=== PATIENT | male | born 1960 | race American Indian/Alaskan Native ===

== ENCOUNTER 2017-09-05 01:20 | Emergency (ER) | payer MEDICARE ==
[2017-09-05] MEDS ORDERED: NORCO 5/325 PO ONE (03:45)
[2017-09-05] MEDS ORDERED: ZOFRAN ODT PO ONE (03:45)
[2017-09-05] MEDS ORDERED: MOTRIN PO ONE (03:45)
--- NOTE | 2017-09-05 03:45 | Emergency Department Report ---
ED Lower Extremity HPI - General Chief Complaint: Extremity Injury, Lower Stated Complaint: ANKLE PAIN Time Seen by Provider: 09/05/17 03:27 Source: patient Mode of arrival: Ambulatory Limitations: No Limitations - History of Present Illness Initial Comments: 57-year-old male past medical history none presents with complaint of right ankle pain. Patient states that while walking on sidewalk he tripped on a curb and inverted his right ankle. Patient denies any other injuries. He shouldn't is accompanied by family member brought him from seen to the ED for evaluation. This occurred approximately 5-6 hours ago. Patient has visible swelling at distal right lateral malleolus and medial malleolus. Patient is awake alert and oriented 3 states that he has difficulty walking secondary to pain in his ankle. Patient denies any loss of consciousness denies any lacerations. States that he just simply tripped over a curb. Complaint: ankle injury Injury: Ankle: Right Type of Injury: inversion Place: street/outdoors Severity: severe Severity scale (0 -10): 8 Improves With: cold therapy, immobilization Worsens With: weight bearing, movement, palpation Context: walking Associated Symptoms: snap/pop sensation, swelling, unable to bear weight - Related Data Previous Rx's Medication Instructions Recorded Last Taken Type HYDROcodone/APAP 5-325 [[place] 1 each PO Q6HR PRN #15 tablet 09/05/17 Unknown Rx 5/325] Naproxen 500 mg PO BID PRN #30 tablet 09/05/17 Unknown Rx Allergies Allergy/AdvReac Type Severity Reaction Status Date / Time No Known Allergies Allergy Unverified 09/05/17 01:41 ED Review of Systems ROS: Stated complaint: ANKLE PAIN Other details as noted in HPI Constitutional: denies: chills, fever Eyes: denies: eye pain, eye discharge, vision change ENT: denies: ear pain, throat pain Respiratory: denies: cough, shortness of breath, wheezing Cardiovascular: denies: chest pain, palpitations Endocrine: no symptoms reported Gastrointestinal: denies: abdominal pain, nausea, diarrhea Genitourinary: denies: urgency, dysuria Musculoskeletal: denies: back pain, joint swelling, arthralgia Skin: denies: rash, lesions Neurological: denies: headache, weakness, paresthesias Psychiatric: denies: anxiety, depression Hematological/Lymphatic: denies: easy bleeding, easy bruising ED Past Medical Hx - Past Medical History Previous Medical History?: No - Surgical History Past Surgical History?: No - Social History Smoking Status: Never Smoker Substance Use Type: Alcohol - Medications Home Medications: Home Medications Medication Instructions Recorded Confirmed Last Taken Type HYDROcodone/APAP 5-325 [[place] 1 each PO Q6HR PRN #15 tablet 09/05/17 Unknown Rx 5/325] Naproxen 500 mg PO BID PRN #30 tablet 09/05/17 Unknown Rx ED Physical Exam - General Limitations: No Limitations General appearance: alert, in no apparent distress - Head Head exam: Present: atraumatic, normocephalic - Eye Eye exam: Present: normal appearance, PERRL, EOMI - ENT ENT exam: Present: mucous membranes moist - Neck Neck exam: Present: normal inspection - Respiratory Respiratory exam: Present: normal lung sounds bilaterally. Absent: respiratory distress - Cardiovascular Cardiovascular Exam: Present: regular rate, normal rhythm. Absent: systolic murmur, diastolic murmur, rubs, gallop - GI/Abdominal GI/Abdominal exam: Present: soft, normal bowel sounds - Rectal Rectal exam: Present: deferred - Extremities Exam Extremities exam: Present: normal inspection - Expanded Lower Extremity Exam Right Knee exam: Present: normal inspection, full ROM Lower Leg exam: Present: normal inspection, full ROM Ankle exam: Present: tenderness, swelling (tenderness and swelling right lateral malleolus) Foot/Toe exam: Present: normal inspection, full ROM Neuro vascular tendon exam: Present: no vascular compromise (distal dorsalis pedis and posterior tibial pulses intact) Gait: Positive: antalgic 1 - Swelling and some ecchymosis here - Back Exam Back exam: Present: normal inspection - Neurological Exam Neurological exam: Present: alert, oriented X3, CN II-XII intact, abnormal gait (antalgic gait secondary to pain) - Psychiatric Psychiatric exam: Present: normal affect, normal mood - Skin Skin exam: Present: warm, dry, intact, normal color. Absent: rash ED Course Vital Signs 09/05/17 09/05/17 01:37 03:52 Temperature 98.7 F Pulse Rate 101 H Respiratory 17 18 Rate Blood Pressure 163/91 ED Lower Extremity MDM - Medical Decision Making A/P: Right distal fibular fracture 1-in context of inversion injury with suspicious fragments near distal fibula will treat patient as distal fibular fracture. 2-patient already has crutches, patient placed in an orthopedic boot with full posterior ankle and foot support 3-short course of naproxen and [place] when necessary 4-all up with orthopedics. I emphasized the importance of follow-up to the patient and educated him. I advised him that it takes approximately 4-6 weeks for fractures of distal fibula to heal. Nonweightbearing for now. Patient states he is familiar with using crutches and already has apparent bedside that he brought from home. 5-patient being driven home by family member Critical care attestation.: If time is entered above; I have spent that time in minutes in the direct care of this critically ill patient, excluding procedure time. ED Disposition Clinical Impression: Closed fibular fracture Qualifiers: Encounter type: initial encounter Fibula location: distal Fracture morphology: unspecified fracture morphology Laterality: right Qualified Code(s): S82.831A - Other fracture of upper and lower end of right fibula, initial encounter for closed fracture Ankle pain, right Qualifiers: Chronicity: acute Qualified Code(s): M25.571 - Pain in right ankle and joints of right foot Disposition: DC-01 TO HOME OR SELFCARE Is pt being admited?: No Does the pt Need Aspirin: No Condition: Stable Instructions: Ankle Fracture (ED), Ankle Stirrup Splint (ED), Crutch Instructions (ED) Prescriptions: HYDROcodone/APAP 5-325 [[place] 5/325] 1 each PO Q6HR PRN #15 tablet PRN Reason: Pain Naproxen 500 mg PO BID PRN #30 tablet PRN Reason: Pain Referrals: CAROLE HYATT MD [Staff Physician] - 3-5 Days [facility] [Provider Group] - 3-5 Days Forms: Accompanied Note, Work/School Release Form(ED) Time of Disposition: 05:35
[2017-09-05 06:03] VITALS: BP 158/91
--- NOTE | 2017-09-06 10:57 | XRay Report ---
FINAL REPORT EXAM: XR RT ANKLE CLINICAL INDICATIONS: RT ANKLE PAIN FINDINGS: 3 views obtained. No prior radiographs. Small bony fragment at the tip of the distal fibula consistent with small avulsion injury of undetermined age. Correlation with clinical history and clinical exam recommended. There is mild soft tissue swelling overlying the lateral malleolus. The ankle mortise is intact. The talar dome is within normal limits. There is a large inferior calcaneal spur. Retrocalcaneal enthesophyte. Cortical irregularity along the posterior portion of the talus, with suggestion of adjacent periosteal reaction which may represent sequela from prior fracture. IMPRESSION: SMALL BONY FRAGMENT AT THE TIP OF THE DISTAL FIBULA CONSISTENT WITH SMALL AVULSION INJURY OF UNDETERMINED AGE. CORRELATION WITH CLINICAL HISTORY AND CLINICAL EXAM RECOMMENDED. THERE IS MILD SOFT TISSUE SWELLING OVERLYING THE LATERAL MALLEOLUS. CORTICAL IRREGULARITY ALONG THE POSTERIOR PORTION OF THE TALUS, WITH SUGGESTION OF ADJACENT PERIOSTEAL REACTION WHICH MAY REPRESENT SEQUELA FROM PRIOR FRACTURE. THE ANKLE MORTISE IS INTACT. LARGE INFERIOR CALCANEAL SPUR.
== END 2017-09-05 06:03 | disposition home or self-care (01) ==
LOC: ED 01:20
DX: S82.831A Other fracture of upper and lower end of right fibula, initial encounter for closed fracture (principal); M25.571 Pain in right ankle and joints of right foot; W18.49XA Other slipping, tripping and stumbling without falling, initial encounter; Y93.01 Activity, walking, marching and hiking; Y99.9 Unspecified external cause status; Y92.89 Other specified places as the place of occurrence of the external cause
CPT/HCPCS: 99283; Q0162

== ENCOUNTER 2019-12-27 19:58 | Inpatient (IN) | payer MEDICARE ==
--- NOTE | 2019-12-27 21:03 | Emergency Department Report ---
Blank Doc - Documentation Documentation: 59-year-old male that presents with abdominal pain and nausea. This initial assessment/diagnostic orders/clinical plan/treatment(s) is/are subject to change based on patient's health status, clinical progression and re- assessment by fellow clinical providers in the ED. Further treatment and workup at subsequent clinical providers discretion. Patient/guardians urged not to elope from the ED as their condition may be serious if not clinically assessed and managed. Initial orders include: 1- Patient sent to [facility] for further evaluation and treatment 2- labs 3- UA
[2019-12-27 21:36] LABS: Basophils % (Auto) 0.4 % (0.0-1.8); Eosinophils # (Auto) 0.1 K/mm3 (0.0-0.4); Eosinophils % (Auto) 0.6 % (0.0-4.3); Hematocrit 39.5 % (35.5-45.6); Hemoglobin 13.2 gm/dl (11.8-15.2); Lymphocytes # (Auto) 1.1 K/mm3 (1.2-5.4); Lymphocytes % (Auto) 11.8 % (13.4-35.0); Mean Corpuscular HGB Conc 33 % (32-34); Mean Corpuscular Volume 90 fl (84-94); Monocytes # (Auto) 0.7 K/mm3 (0.0-0.8); Platelet Count 270 K/mm3 (140-440); Red Blood Count 4.41 M/mm3 (3.65-5.03); Red Cell Distribution Width 14.3 % (13.2-15.2)
[2019-12-27 21:59] LABS: Alanine Aminotransferase 31 units/L (7-56); BUN/Creatinine Ratio 11; Blood Urea Nitrogen 11 mg/dL (9-20); Calcium 9.1 mg/dL (8.4-10.2); Hemolysis Index 12
[2019-12-27 22:12] LABS: Bilirubin,Urine NEG (Negative); Blood,Urine NEG (Negative); Color,Urine Yellow (Yellow); Protein,Urine <15 mg/dL mg/dL (Negative); Urobilinogen,Urine < 2.0 mg/dL (<2.0)
[2019-12-27] MEDS ORDERED: FAMOTIDINE 20 MG/2 ML INJ IV ONE (22:21)
[2019-12-27] MEDS ORDERED: SODIUM CHLORIDE 0.9% 1000 ML 1,000 ML IV ONE (22:21)
[2019-12-27] MEDS ORDERED: ACETAMINOPHEN 325 MG TAB PO STA (22:21)
[2019-12-27] MEDS ORDERED: SUCRALFATE 1 GM/10 ML ORAL LIQD PO ONE (22:22)
--- NOTE | 2019-12-27 22:23 | Emergency Department Report ---
ED Abdominal Pain HPI - General Chief Complaint: Abdominal Pain Stated Complaint: CHEST AND STOMACH PAIN Time Seen by Provider: 12/27/19 21:02 Source: patient, RN notes reviewed Mode of arrival: Ambulatory Limitations: No Limitations - History of Present Illness Initial Comments: Primary care doctor: Dr. John English Past medical history: Hypertension, high cholesterol, GERD, reports colonoscopy within the past 10 years, believes it was fairly unremarkable This is a pleasant 59-year-old gentleman. He is not known to myself previously. He presents to the ER today with a complaint of 5 days of abdominal pain. The abdominal pain is supraumbilical, periumbilical, and in the bilateral mid flanks, left upper quadrant most prominent. The pain is described as sharp, mixed, decreases with sleeping, increases with walking. No fever, no nausea, no vomiting, no diarrhea, no testicular pain, no urinary symptoms, no hematemesis, no bright red blood per rectum, positive chronic dry cough, no chest pain, no shortness of breath, positive chronic myalgias. MD Complaint: abdominal pain -: Gradual, days(s) Location: periumbilical, LUQ Radiation: none Severity: moderate Quality: aching Consistency: intermittent Improves With: other Worsens With: other - Related Data Home Medications Medication Instructions Recorded Confirmed Last Taken AtorvaSTATin [Lipitor] 40 mg PO QHS 12/28/19 12/28/19 Unknown Losartan/Hydrochlorothiazide 1 each PO 12/28/19 Unknown [Losartan-Hctz 100-25 mg Tab] Allergies Allergy/AdvReac Type Severity Reaction Status Date / Time No Known Allergies Allergy Unverified 09/05/17 01:41 ED Review of Systems ROS: Stated complaint: CHEST AND STOMACH PAIN Other details as noted in HPI Constitutional: denies: fever Eyes: denies: eye discharge ENT: denies: congestion Respiratory: cough (Chronic cough). denies: wheezing Cardiovascular: denies: chest pain, syncope Gastrointestinal: abdominal pain. denies: hematemesis, melena, hematochezia Genitourinary: denies: urgency, dysuria, frequency, hematuria, testicular pain, testicular mass Musculoskeletal: arthralgia, myalgia Skin: denies: lesions Neurological: denies: weakness Hematological/Lymphatic: denies: easy bleeding ED Past Medical Hx - Past Medical History Previous Medical History?: Yes Hx Hypertension: Yes Additional medical history: ELEVATED CHOLESTEROL - Surgical History Past Surgical History?: Yes Additional Surgical History: RT ANKLE, BILATERAL KNEE PAIN - Social History Smoking Status: Never Smoker Substance Use Type: None - Medications Home Medications: Home Medications Medication Instructions Recorded Confirmed Last Taken Type AtorvaSTATin [Lipitor] 40 mg PO QHS 12/28/19 12/28/19 Unknown History Losartan/Hydrochlorothiazide 1 each PO 12/28/19 Unknown History [Losartan-Hctz 100-25 mg Tab] ED Physical Exam - General Limitations: No Limitations General appearance: alert, in no apparent distress - Head Head exam: Present: atraumatic, normocephalic - Eye Eye exam: Present: normal appearance, EOMI. Absent: nystagmus - ENT ENT exam: Present: normal exam, normal orophraynx, mucous membranes moist, normal external ear exam - Neck Neck exam: Present: normal inspection, full ROM. Absent: tenderness, meningismus - Respiratory Respiratory exam: Present: normal lung sounds bilaterally. Absent: respiratory distress - Cardiovascular Cardiovascular Exam: Present: regular rate, normal rhythm, normal heart sounds. Absent: bradycardia, tachycardia, irregular rhythm, systolic murmur, diastolic murmur, rubs, gallop - GI/Abdominal GI/Abdominal exam: Present: soft, tenderness, normal bowel sounds, other (There is periumbilical tenderness. There is left upper quadrant tenderness.). Absent: distended, guarding, rebound, rigid, pulsatile mass - Rectal Rectal exam: Present: deferred - Extremities Exam Extremities exam: Present: normal inspection, full ROM, other (2+ pulses noted in the bilateral upper and lower extremities. There is no palpable cord. negative Homans sign. Muscular compartments are soft. The pelvis is stable.). Absent: pedal edema, calf tenderness - Back Exam Back exam: Present: normal inspection, full ROM. Absent: tenderness, CVA tenderness (R), CVA tenderness (L), paraspinal tenderness, vertebral tenderness - Neurological Exam Neurological exam: Present: alert, other (There is no facial droop. The tongue is midline. Extraocular movements are intact bilaterally. There is 5 out of 5 strength in bilateral upper and lower extremities. Sensation is intact to light touch bilateral upper and lower extremities. ). Absent: motor sensory deficit - Psychiatric Psychiatric exam: Present: normal affect, normal mood - Skin Skin exam: Present: warm, dry, intact, normal color. Absent: rash ED Course Vital Signs 12/27/19 12/27/19 12/27/19 20:33 21:35 22:31 Temperature 99.1 F 98.7 F Pulse Rate 83 75 78 Respiratory 20 12 7 L Rate Blood Pressure 124/73 109/70 Blood Pressure 113/69 [Right] O2 Sat by Pulse 98 100 100 Oximetry 12/27/19 12/28/19 12/28/19 23:31 00:23 01:03 Temperature Pulse Rate 87 89 93 H Respiratory 29 H 10 L 23 Rate Blood Pressure 136/55 137/67 Blood Pressure 137/67 [Right] O2 Sat by Pulse 99 96 96 Oximetry 12/28/19 01:45 Temperature Pulse Rate 96 H Respiratory 20 Rate Blood Pressure Blood Pressure 131/81 [Right] O2 Sat by Pulse 96 Oximetry - Reevaluation(s) Reevaluation #1: 12/27/19 23:35 Differential diagnosis, including but not limited to: GERD, gastritis, hiatal hernia, pancreatitis, ventral hernia, colitis, diverticulitis, obstruction, volvulus, malignancy Assessment and plan: 59-year-old gentleman with 5 days of periumbilical, and left upper quadrant abdominal pain. He is not tachycardic, tachypneic or hypoxic, he denies recent travel, surgery, immobilization, and denies DVT, pulmonary embolism risk factors. He is low risk by Wells criteria. He does not endorse chest pain to myself. His EKG is fairly unremarkable, troponin is negative, symptoms present for 5 days, as per the [employer] clinical policy, myocardial infarction may be excluded with 1 set of cardiac enzymes if symptoms present for greater than 8 hours. Based off of the history and physical, patient also very unlikely to experience major adverse cardiac events as he is low risk by heart score. We will treat his pain, CT scan abdomen pelvis ordered and pending, we will reassess after initial data points. Reevaluation #2: 12/28/19 01:40 CT scan suggests intra-abdominal abscess, contained perforation. Patient states his pain is improved. Laboratory studies reviewed and appreciated. Antibiotics ordered. Discussed CT scan findings with patient. He is amenable to hospitalization and admission. Hospital physician is paged to arrange admission. General surgery is paged to arrange evaluation and consultation. Reevaluation #3: 12/28/19 01:46 General surgeon, Dr. Fernandes, recommends GI consultation, CT abdomen pelvis with only oral contrast. Dr Justin Abel to admit Reevaluation #4: 12/28/19 01:57 Discussed with gastroenterology, Dr. Shafer, his group will follow in consultation. Reevaluation #5: 12/28/19 02:18 Please note that mechatronics technologist was instructed to administer water-soluble oral contrast. - Consultations Consultation #1: 12/28/19 01:41 d/w general surgery Dr Marleny Evans,iraida who agrees to follow in ED Medical Decision Making - Lab Data Result diagrams: 12/27/19 21:06 12/27/19 21:06 Vital Signs 12/27/19 12/27/19 20:33 21:35 Temperature 99.1 F 98.7 F Pulse Rate 83 75 Respiratory 20 12 Rate Blood Pressure 124/73 Blood Pressure 113/69 [Right] O2 Sat by Pulse 98 100 Oximetry Lab Results 12/27/19 12/27/19 12/27/19 Range/Units 21:06 21:06 21:06 WBC 9.1 (4.5-11.0) K/mm3 RBC 4.41 (3.65-5.03) M/mm3 Hgb 13.2 (11.8-15.2) gm/dl Hct 39.5 (35.5-45.6) % MCV 90 (84-94) fl MCH 30 (28-32) pg MCHC 33 (32-34) % RDW 14.3 (13.2-15.2) % Plt Count 270 (140-440) K/mm3 Lymph % (Auto) 11.8 L (13.4-35.0) % Alexander % (Auto) 8.0 H (0.0-7.3) % Eos % (Auto) 0.6 (0.0-4.3) % Baso % (Auto) 0.4 (0.0-1.8) % Lymph # 1.1 L (1.2-5.4) K/mm3 Alexander # 0.7 (0.0-0.8) K/mm3 Eos # 0.1 (0.0-0.4) K/mm3 Baso # 0.0 (0.0-0.1) K/mm3 Seg Neutrophils % 79.2 H (40.0-70.0) % Seg Neutrophils # 7.2 (1.8-7.7) K/mm3 Sodium 142 (137-145) mmol/L Potassium 3.4 L (3.6-5.0) mmol/L Chloride 101.0 (98-107) mmol/L Carbon Dioxide 24 (22-30) mmol/L Anion Gap 20 mmol/L BUN 11 (9-20) mg/dL Creatinine 1.0 (0.8-1.5) mg/dL Estimated GFR > 60 ml/min BUN/Creatinine Ratio 11 % Glucose 116 H (75-100) mg/dL Calcium 9.1 (8.4-10.2) mg/dL Magnesium 2.00 (1.7-2.3) mg/dL Total Bilirubin 0.50 (0.1-1.2) mg/dL AST 30 (5-40) units/L ALT 31 (7-56) units/L Alkaline Phosphatase 84 (35-129) units/L Total Creatine Kinase 152 (55-170) units/L Troponin T < 0.010 (0.00-0.029) ng/mL Total Protein 7.0 (6.3-8.2) g/dL Albumin 4.0 (3.9-5) g/dL Albumin/Globulin Ratio 1.3 % Lipase 76 H (13-60) units/L Urine Color (Yellow) Urine Turbidity (Clear) Urine pH (5.0-7.0) Ur Specific [place] (1.003-1.030) Urine Protein (Negative) mg/dL Urine Glucose (UA) (Negative) mg/dL Urine Ketones (Negative) mg/dL Urine Blood (Negative) Urine Nitrite (Negative) Urine Bilirubin (Negative) Urine Urobilinogen (<2.0) mg/dL Ur Leukocyte Esterase (Negative) Urine WBC (Auto) (0.0-6.0) /HPF Urine RBC (Auto) (0.0-6.0) /HPF 12/27/19 Range/Units 21:45 WBC (4.5-11.0) K/mm3 RBC (3.65-5.03) M/mm3 Hgb (11.8-15.2) gm/dl Hct (35.5-45.6) % MCV (84-94) fl MCH (28-32) pg MCHC (32-34) % RDW (13.2-15.2) % Plt Count (140-440) K/mm3 Lymph % (Auto) (13.4-35.0) % Alexander % (Auto) (0.0-7.3) % Eos % (Auto) (0.0-4.3) % Baso % (Auto) (0.0-1.8) % Lymph # (1.2-5.4) K/mm3 Alexander # (0.0-0.8) K/mm3 Eos # (0.0-0.4) K/mm3 Baso # (0.0-0.1) K/mm3 Seg Neutrophils % (40.0-70.0) % Seg Neutrophils # (1.8-7.7) K/mm3 Sodium (137-145) mmol/L Potassium (3.6-5.0) mmol/L Chloride (98-107) mmol/L Carbon Dioxide (22-30) mmol/L Anion Gap mmol/L BUN (9-20) mg/dL Creatinine (0.8-1.5) mg/dL Estimated GFR ml/min BUN/Creatinine Ratio % Glucose (75-100) mg/dL Calcium (8.4-10.2) mg/dL Magnesium (1.7-2.3) mg/dL Total Bilirubin (0.1-1.2) mg/dL AST (5-40) units/L ALT (7-56) units/L Alkaline Phosphatase (35-129) units/L Total Creatine Kinase (55-170) units/L Troponin T (0.00-0.029) ng/mL Total Protein (6.3-8.2) g/dL Albumin (3.9-5) g/dL Albumin/Globulin Ratio % Lipase (13-60) units/L Urine Color Yellow (Yellow) Urine Turbidity Clear (Clear) Urine pH 5.0 (5.0-7.0) Ur Specific [place] 1.013 (1.003-1.030) Urine Protein <15 mg/dl (Negative) mg/dL Urine Glucose (UA) Neg (Negative) mg/dL Urine Ketones Neg (Negative) mg/dL Urine Blood Neg (Negative) Urine Nitrite Neg (Negative) Urine Bilirubin Neg (Negative) Urine Urobilinogen < 2.0 (<2.0) mg/dL Ur Leukocyte Esterase Neg (Negative) Urine WBC (Auto) 1.0 (0.0-6.0) /HPF Urine RBC (Auto) 1.0 (0.0-6.0) /HPF - EKG Data -: EKG Interpreted by Nm EKG shows normal: sinus rhythm Rate: normal - EKG Data When compared to previous EKG there are: previous EKG unavailable 12/27/19 23:37 EKG shows a sinus rhythm, 81 bpm, normal axis, borderline left ventricular hypertrophy, motion artifact, atrial enlargement, no prior for comparison, this is not consistent with STEMI - Radiology Data Radiology results: pending, report reviewed, image reviewed Print Report Referring Physician: TASHA AMADOR Patient Name: JULI VELEZ Date of : 1960 Sex: Male Report Date: 2019-12-28 Report Status: Finalized Findings [facility] [address] [place] [address] Cat Scan Report Signed Patient: JULI VELEZ MR#: [id number] : 1960 Acct:[id number] Age/Sex: 59 / M ADM Date: 12/27/19 Loc: ED Attending Dr: Ordering Physician: TASHA AMADOR MD Date of Service: 12/27/19 Procedure(s): CT abdomen pelvis w con Accession Number(s): [id number] cc: TASHA AMADOR MD CT ABDOMEN AND PELVIS WITH CONTRAST INDICATION: Left upper quadrant and periumbilical pain for one week. COMPARISON: No relevant prior imaging study available. TECHNIQUE: Axial, coronal and sagittal CT imaging of the abdomen and pelvis was performed after injection of 100 cc Omnipaque [address] scans at this location are performed using CT dose reduction for ALARA by means of automated exposure control. FINDINGS: LOWER CHEST: No significant abnormality. LIVER: No significant abnormality. BILIARY: No significant abnormality. PANCREAS: No significant abnormality. SPLEEN: No significant abnormality. ADRENALS: No significant abnormality. KIDNEYS AND URETERS: Multiple renal cysts are seen bilaterally measuring up to 6 cm on the left and 3 cm on the right of simple appearance. No additional significant abnormality. GI TRACT: No significant abnormality of the stomach. The proximal jejunum is mildly dilated with scattered air-fluid levels and surrounding edema. There is a suspected interloop abscess measuring 3.7 x 3.5 cm on image 75 of series 2 with a suspected contained perforation. The small bowel is otherwise unremarkable. Diffuse colonic diverticulosis is noted without evidence of diverticulitis. Unremarkable appendix. PERITONEUM: As above. No free air is seen elsewhere along the abdomen or pelvis. No free fluid is noted. LYMPH NODES: No significant adenopathy. VASCULATURE: No significant abnormality. URINARY BLADDER: No significant abnormality. REPRODUCTIVE ORGANS: No significant abnormality. ADDITIONAL FINDINGS: There is a small right inguinal hernia containing fat. Rectus diastasis is seen with small umbilical/periumbilical hernias containing fat and unremarkable appearing bowel loops. SKELETAL SYSTEM: No acute abnormality. Degenerative changes are seen throughout the spine and along the SI joints. IMPRESSION: 1. Proximal jejunitis with evidence of a contained perforation and suspected interloop abscess as above. 2. Additional findings as above. Signer Name: Jeremy Gonzalez MD Signed: 12/28/2019 1:13 AM Workstation Name: [id number] Transcribed By: [place] Dictated By: Jeremy Gonzalez MD Electronically Authenticated By: Jeremy Gonzalez MD Signed Date/Time: 12/28/19 0113 DD/ [id number] Critical care attestation.: If time is entered above; I have spent that time in minutes in the direct care of this critically ill patient, excluding procedure time. ED Disposition Clinical Impression: Abdominal abscess Disposition: OP ADMIT IP TO THIS HOSP Is pt being admited?: Yes Does the pt Need Aspirin: No Condition: Serious Referrals: PRIMARY CARE, [Referring] - 3-5 Days
[2019-12-27] MEDS ORDERED: POTASSIUM CHLORIDE ER 20 MEQ TAB PO ONE (23:32)
--- NOTE | 2019-12-28 01:17 | Cat Scan Report ---
CT ABDOMEN AND PELVIS WITH CONTRAST INDICATION: Left upper quadrant and periumbilical pain for one week. COMPARISON: No relevant prior imaging study available. TECHNIQUE: Axial, coronal and sagittal CT imaging of the abdomen and pelvis was performed after inje ction of 100 cc Omnipaque [address] scans at this location are performed using CT dose re duction for ALARA by means of automated exposure control. FINDINGS: LOWER CHEST: No significant abnormality. LIVER: No significant abnormality. BILIARY: No significant abnormality. PANCREAS: No significant abnormality. SPLEEN: No significant abnormality. ADRENALS: No significant abnormality. KIDNEYS AND URETERS: Multiple renal cysts are seen bilaterally measuring up to 6 cm on the left and 3 cm on the right of simple appearance. No additional significant abnormality. GI TRACT: No significant abnormality of the stomach. The proximal jejunum is mildly dilated with scat tered air-fluid levels and surrounding edema. There is a suspected interloop abscess measuring 3.7 x 3.5 cm on image 75 of series 2 with a suspected contained perforation. The small bowel is otherwise u nremarkable. Diffuse colonic diverticulosis is noted without evidence of diverticulitis. Unremarkable appendix. PERITONEUM: As above. No free air is seen elsewhere along the abdomen or pelvis. No free fluid is not ed. LYMPH NODES: No significant adenopathy. VASCULATURE: No significant abnormality. URINARY BLADDER: No significant abnormality. REPRODUCTIVE ORGANS: No significant abnormality. ADDITIONAL FINDINGS: There is a small right inguinal hernia containing fat. Rectus diastasis is seen with small umbilical/periumbilical hernias containing fat and unremarkable appearing bowel loops. SKELETAL SYSTEM: No acute abnormality. Degenerative changes are seen throughout the spine and along t he SI joints. IMPRESSION: 1. Proximal jejunitis with evidence of a contained perforation and suspected interloop abscess as abo ve. 2. Additional findings as above. Signer Name: Jeremy Gonzalez MD Signed: 12/28/2019 1:13 AM Workstation Name: [id number]
[2019-12-28] MEDS ORDERED: PIPERACIL/TAZOBACTA 4.5/NS 100 4.5 GM/100 ML VIAL IV ONE (01:33)
[2019-12-28] MEDS ORDERED: metroNIDAZOLE/NS 500 MG/100 ML 500 MG/100 ML BAG IV ONE (01:33)
[2019-12-28] MEDS ORDERED: SODIUM CHLORIDE 0.9% 1000 ML 2,000 ML IV ONE (01:42)
[2019-12-28] MEDS ORDERED: PANTOPRAZOLE 40 MG INJ IV ONE (01:56)
[2019-12-28] MEDS ORDERED: ONDANSETRON 4 MG/2 ML INJ IV PRN (02:57)
[2019-12-28] MEDS ORDERED: ACETAMINOPHEN 325 MG TAB PO PRN (02:57)
[2019-12-28] MEDS ORDERED: MORPHINE 2 MG/1 ML INJ IV PRN (02:57)
--- NOTE | 2019-12-28 03:05 | History and Physical Report ---
History of Present Illness Date of admission: 12/28/19 02:46 History of present illness: 59-year-old man with a history of hypertension, hyperlipidemia, GERD comes emergency room with complaints of abdominal pain. Abdominal pain started 1 week ago, located in the mid abdomen which he describes as a sharp pain, intermittent every 3 minutes, intensity 5/10, no radiation, cannot identify exacerbating factor, relieved with IV pain medication given in the emergency room. He denies any nausea vomiting, fever chills, diarrhea. Patient will be admitted for jejunitis with perforation and probably abscess Review Of Systems: Constitutional: no weight loss, fever, chills Ears, eyes, nose, mouth and throat: no nasal congestion, no nasal discharge, no sinus pressure, blurry vision, diplopia Neck: No neck pain or rigidity. Cardiovascular: No palpitations, chest pain Respiratory: No shortness of breath, cough Gastrointestinal: No hematochezia Genitourinary : no dysuria, frequency Musculoskeletal: no muscle ache , joint pain Integumentary: no rash, no pruritis Neurological: no parathesias, focal weakness Endocrine: no cold or heat intolerance, no polyuria or polydipsia Hematologic/Lymphatic: no easy bruising, no easy bleeding, no gland swelling Allergic/Immunologic: no urticaria, no angioedema. PAST MEDICAL HISTORY: Hypertension, hyperlipidemia, GERD PAST SURGICAL HISTORY: Ankle, knee FAMILY HISTORY: Hypertension SOCIAL HISTORY: Social alcohol, no tobacco OR drugs Medications and Allergies Allergies Allergy/AdvReac Type Severity Reaction Status Date / Time No Known Allergies Allergy Unverified 09/05/17 01:41 Home Medications Medication Instructions Recorded Confirmed Last Taken Type AtorvaSTATin [Lipitor] 40 mg PO QHS 12/28/19 12/28/19 Unknown History Losartan/Hydrochlorothiazide 1 each PO 12/28/19 Unknown History [Losartan-Hctz 100-25 mg Tab] Active Meds: Active Medications Acetaminophen (Tylenol) 650 mg PO Q4H PRN PRN Reason: Pain MILD(1-3)/Fever >100.5/CHOWDHURY Enoxaparin Sodium (Enoxaparin) 40 mg SUB-Q QDAY SHILOH Sodium Chloride (Nacl 0.9% 1000 Ml) 1,000 mls @ 125 mls/hr IV DIRECT SHILOH Piperacillin Sod/Tazobactam Sod (Zosyn/Ns 4.5gm/100ml) 4.5 gm in 100 mls @ 200 mls/hr IV Q8HR SHILOH; Protocol Morphine Sulfate (Morphine) 2 mg IV Q4H PRN PRN Reason: Pain, Moderate (4-6) Ondansetron HCl (Zofran) 4 mg IV Q8H PRN PRN Reason: Nausea And Vomiting Sodium Chloride (Sodium Chloride Flush Syringe 10 Ml) 10 ml IV BID SHILOH Sodium Chloride (Sodium Chloride Flush Syringe 10 Ml) 10 ml IV PRN PRN PRN Reason: LINE FLUSH Exam - Physical Exam Narrative exam: My physical exam - Constitutional Vitals: Temp Pulse Resp BP Pulse Ox 98.7 F 96 H 18 131/81 97 12/27/19 21:35 12/28/19 01:45 12/28/19 02:40 12/28/19 01:45 12/28/19 02:40 Results - Labs CBC & Chem 7: 12/27/19 21:06 12/27/19 21:06 Labs: Abnormal lab results 12/27/19 12/27/19 Range/Units 21:06 21:06 Lymph % (Auto) 11.8 L (13.4-35.0) % [place] % (Auto) 8.0 H (0.0-7.3) % Lymph # 1.1 L (1.2-5.4) K/mm3 Seg Neutrophils % 79.2 H (40.0-70.0) % Potassium 3.4 L (3.6-5.0) mmol/L Glucose 116 H (75-100) mg/dL Lipase 76 H (13-60) units/L - Imaging and Cardiology CT scan - abdomen: report reviewed CT scan - pelvis: report reviewed Assessment and Plan Assessment Acute jejunitis with contained perforation and suspected abscess formation Patient will be placed on bowel rest, start IV fluids, IV Zosyn Surgery and GI was consulted to see the patient Start IV morphine Hypertension, now normotensive Hold antihypertensive Hyperlipidemia/GERD, stable DVT prophylaxis
[2019-12-28] MEDS ORDERED: SODIUM CHLORIDE 0.9% 1000 ML 1,000 ML ONE (03:18)
[2019-12-28] MEDS: SODIUM CHLORIDE 0.9% 1000 ML 1,000 ML IV SCH ×2 (03:21→05:30)
--- NOTE | 2019-12-28 03:58 | Cat Scan Report ---
CT ABDOMEN AND PELVIS WITHOUT CONTRAST INDICATION: Unspecified abdominal pain. Possible perforated viscus seen on prior CT. COMPARISON: CT abdomen and pelvis with contrast performed earlier today. TECHNIQUE: Axial, coronal and sagittal CT imaging of the abdomen and pelvis was performed without IV contrast and with oral contrast. All CT scans at this location are performed using CT dose reduction for ALARA by means of automated exposure control. FINDINGS: LOWER CHEST: No significant abnormality. LIVER: No significant abnormality. BILIARY: No significant abnormality. PANCREAS: No significant abnormality. SPLEEN: No significant abnormality. ADRENALS: No significant abnormality. KIDNEYS AND URETERS: Stable bilateral renal cysts. No additional significant abnormality. GI TRACT: There is a similar abnormal appearance of the proximal jejunum with mild dilatation and thi ckening. The previously suspected interloop abscess and contained perforation is unchanged. No extrav asation of oral contrast is identified. No additional significant abnormality of the small bowel. Col onic diverticulosis is again seen without evidence of diverticulitis. The appendix is unremarkable. PERITONEUM: As above. No new free air is visualized. No free fluid or other organized fluid collectio n is seen. LYMPH NODES: No significant adenopathy. VASCULATURE: No significant abnormality. URINARY BLADDER: No significant abnormality. REPRODUCTIVE ORGANS: No significant abnormality. ADDITIONAL FINDINGS: A small right inguinal hernia is again seen containing fat. Rectus diastasis is again noted with small umbilical/periumbilical hernias containing fat and unremarkable appearing jayshree l loops. SKELETAL SYSTEM: No acute abnormality or significant change. IMPRESSION: Stable proximal jejunitis with a similar appearing suspected contained perforation and interloop absc ess. No extravasation of oral contrast is identified. Signer Name: Jeremy Gonzalez MD Signed: 12/28/2019 3:53 AM Workstation Name: [id number]
[2019-12-28 06:06] LABS: Basophils % (Auto) 0.3 % (0.0-1.8); Eosinophils % (Auto) 0.1 % (0.0-4.3); Hematocrit 37.2 % (35.5-45.6); Hemoglobin 12.3 gm/dl (11.8-15.2); Lymphocytes % (Auto) 11.2 % (13.4-35.0); Mean Corpuscular HGB Conc 33 % (32-34); Mean Corpuscular Volume 88 fl (84-94); Monocytes # (Auto) 0.7 K/mm3 (0.0-0.8); Monocytes % (Auto) 8.8 % (0.0-7.3); Platelet Count 241 K/mm3 (140-440); Red Blood Count 4.23 M/mm3 (3.65-5.03)
[2019-12-28 06:34] LABS: BUN/Creatinine Ratio 9; Blood Urea Nitrogen 9 mg/dL (9-20); Calcium 8.5 mg/dL (8.4-10.2); Hemolysis Index 0
--- NOTE | 2019-12-28 09:24 | Consultation ---
History of Present Illness Consult date: 12/28/19 Reason for consult: abdominal pain Requesting physician: TASHA AMADOR Chief complaint: abdominal pain - History of present illness History of present illness: 59yo M presented to the emergency room on the insistence of his daughter after he began to have pain after lunch. Patient reports that this originally began last week Wednesday. He experienced pain after eating. He thought it was gas related. It eventually resolved and he did well up until yesterday. He reports that he was eating normally over the weekend. He went to the gym on Wednesday and had a regular workout and felt very good. Denies any fevers, chills, nausea, vomiting. Denies any personal or family history of intestinal diseases. Denies any coffee-ground emesis, hematemesis, bright red blood per rectum, or melena. Has minimal discomfort now. He is hungry. He is wondering when he can go home. Does report regular ibuprofen use. He takes 2 tablets every morning for back pain. He has breakfast soon after taking the tablets. When he began to have the abdominal pain last week, he spoke with his primary care physician. The doctor advised him to stop the ibuprofen and use Tylenol instead. Past History Past Medical History: GERD, hypertension, hyperlipidemia Past Surgical History: Other (bilateral knee arthroscopies, right ankle ORIF) Social history: denies: smoking, alcohol abuse (occasional alcohol use), prescription drug abuse, IV drug use Family history: no significant family history Medications and Allergies Allergies Allergy/AdvReac Type Severity Reaction Status Date / Time No Known Allergies Allergy Unverified 09/05/17 01:41 Home Medications Medication Instructions Recorded Confirmed Last Taken Type AtorvaSTATin [Lipitor] 40 mg PO QHS 12/28/19 12/28/19 Unknown History Losartan/Hydrochlorothiazide 1 each PO 12/28/19 Unknown History [Losartan-Hctz 100-25 mg Tab] Active Meds: Active Medications Acetaminophen (Tylenol) 650 mg PO Q4H PRN PRN Reason: Pain MILD(1-3)/Fever >100.5/CHOWDHURY Enoxaparin Sodium (Enoxaparin) 40 mg SUB-Q QDAY SHILOH Sodium Chloride (Nacl 0.9% 1000 Ml) 1,000 mls @ 125 mls/hr IV DIRECT SHILOH Last Admin: 12/28/19 05:30 Dose: 125 mls/hr Documented by: Piperacillin Sod/Tazobactam Sod (Zosyn/Ns 4.5gm/100ml) 4.5 gm in 100 mls @ 200 mls/hr IV Q8HR SHILOH; Protocol Morphine Sulfate (Morphine) 2 mg IV Q4H PRN PRN Reason: Pain, Moderate (4-6) Ondansetron HCl (Zofran) 4 mg IV Q8H PRN PRN Reason: Nausea And Vomiting Sodium Chloride (Sodium Chloride Flush Syringe 10 Ml) 10 ml IV BID SHILOH Sodium Chloride (Sodium Chloride Flush Syringe 10 Ml) 10 ml IV PRN PRN PRN Reason: LINE FLUSH Review of Systems - Constitutional no weight loss, no fever, no chills, no chronic pain - Cardiovascular no chest pain, no shortness of breath - Respiratory no cough - Gastrointestinal abdominal pain, heartburn, no nausea, no vomiting, no change in bowel habits, no hematemesis, no coffee ground emesis, no BRBPR, no melena, no hematochezia, no loss of appetite, no dyspepsia/bloating - Genitourinary no dysuria - Muskuloskeletal no low back pain - Integumentary no redness, no sores, no wounds Exam Vital Signs Temp Pulse Resp BP Pulse Ox 99.1 F 83 20 124/73 98 12/27/19 20:33 12/27/19 20:33 12/27/19 20:33 12/27/19 20:33 12/27/19 20:33 - General physical appearance Positive: well developed, well nourished, no distress, no pain, other (looks well. pleasant) - Eyes Positive: normal occular movement - Respiratory Positive: normal expansion, normal respiratory effort, clear to auscultation - Cardiovascular Rhythm: regular - Abdomen Abdomen: Present: soft, bowel sounds normal. Absent: tender, distended, masses, rebound, guarding, rigid, wound, surgical scars - Integumentary no rash, no growths, no abnormal pigmentation - Neurologic Neurologic: alert and oriented to time, place and person, motor strength and sensation are grossly intact - Psychiatric Psychiatric: appropriate mood/affect, intact judgment & insight, memory intact, cooperative Results - Labs 12/28/19 05:05 12/28/19 05:05 Abnormal lab results 12/27/19 12/27/19 12/28/19 Range/Units 21:06 21:06 05:05 Lymph % (Auto) 11.8 L 11.2 L (13.4-35.0) % [place] % (Auto) 8.0 H 8.8 H (0.0-7.3) % Lymph # 1.1 L 1.0 L (1.2-5.4) K/mm3 Seg Neutrophils % 79.2 H 79.6 H (40.0-70.0) % Potassium 3.4 L (3.6-5.0) mmol/L Glucose 116 H (75-100) mg/dL Lipase 76 H (13-60) units/L 12/28/19 Range/Units 05:05 Lymph % (Auto) (13.4-35.0) % [place] % (Auto) (0.0-7.3) % Lymph # (1.2-5.4) K/mm3 Seg Neutrophils % (40.0-70.0) % Potassium 3.1 L (3.6-5.0) mmol/L Glucose 138 H (75-100) mg/dL Lipase (13-60) units/L Diabetes panel 12/27/19 12/28/19 Range/Units 21:06 05:05 Sodium 142 144 (137-145) mmol/L Potassium 3.4 L 3.1 L (3.6-5.0) mmol/L Chloride 101.0 105.3 (98-107) mmol/L Carbon Dioxide 24 23 (22-30) mmol/L BUN 11 9 (9-20) mg/dL Creatinine 1.0 1.0 (0.8-1.5) mg/dL Glucose 116 H 138 H (75-100) mg/dL Calcium 9.1 8.5 (8.4-10.2) mg/dL AST 30 (5-40) units/L ALT 31 (7-56) units/L Alkaline Phosphatase 84 (35-129) units/L Total Protein 7.0 (6.3-8.2) g/dL Albumin 4.0 (3.9-5) g/dL Calcium panel 12/27/19 12/28/19 Range/Units 21:06 05:05 Calcium 9.1 8.5 (8.4-10.2) mg/dL Albumin 4.0 (3.9-5) g/dL Pituitary panel 12/27/19 12/28/19 Range/Units 21:06 05:05 Sodium 142 144 (137-145) mmol/L Potassium 3.4 L 3.1 L (3.6-5.0) mmol/L Chloride 101.0 105.3 (98-107) mmol/L Carbon Dioxide 24 23 (22-30) mmol/L BUN 11 9 (9-20) mg/dL Creatinine 1.0 1.0 (0.8-1.5) mg/dL Glucose 116 H 138 H (75-100) mg/dL Calcium 9.1 8.5 (8.4-10.2) mg/dL Adrenal panel 12/27/19 12/28/19 Range/Units 21:06 05:05 Sodium 142 144 (137-145) mmol/L Potassium 3.4 L 3.1 L (3.6-5.0) mmol/L Chloride 101.0 105.3 (98-107) mmol/L Carbon Dioxide 24 23 (22-30) mmol/L BUN 11 9 (9-20) mg/dL Creatinine 1.0 1.0 (0.8-1.5) mg/dL Glucose 116 H 138 H (75-100) mg/dL Calcium 9.1 8.5 (8.4-10.2) mg/dL Total Bilirubin 0.50 (0.1-1.2) mg/dL AST 30 (5-40) units/L ALT 31 (7-56) units/L Alkaline Phosphatase 84 (35-129) units/L Total Protein 7.0 (6.3-8.2) g/dL Albumin 4.0 (3.9-5) g/dL - Imaging CT scan - abdomen: report reviewed, image reviewed CT scan - pelvis: report reviewed, image reviewed Assessment and Plan - Patient Problems (1) Abnormal CT of the abdomen Current Visit: Yes Status: Acute Plan to address problem: Pt stable. No indication for emergency surgery. The presentation is unusual. I would expect the patient to appear ill if he had an abscess secondary to a perforation that most likely would have begun last week Wednesday. Even if the perforation occurred yesterday, I would still expect him to looks somewhat ill. The patient looked perfectly healthy. His exam is essentially benign. His labs are normal. I'm not sure what the exact cause of this abnormal CT finding is. However, I do not recommend any interventions from my end. It's okay to start a diet from my standpoint. The workup should probably continue as an outpatient with gastroenterology. I'm concerned about the appearance of the proximal small bowel. Could this be related to new onset of inflammatory bowel disease? Will be available if needed. Please call with questions. time=30min
[2019-12-28] MEDS ORDERED: ENOXAPARIN 40 MG/0.4 ML INJ SUB-Q SCH (10:00)
--- NOTE | 2019-12-28 10:06 | Gastroenterology Consultation ---
<RAYMUNDO RAE - Last Filed: 12/28/19 11:18> History of Present Illness - Reason for Consult Consult date: 12/28/19 perf viscus Requesting physician: TASHA AMADOR - History of Present Illness Patient is a 59 y/o male with PMH of HTN, HLD, and GERD who presented to ED with c/o upper abdominal pain. Upon admission, abd CT showed proximal jejunitis with evidence of contained perforation and suspected interloop abscess to which GI has been consulted. Surgery following with repeat CT ordered with oral contrast with no extravasation of contrast seen and no recommendations for surgical intervention at this time. This morning patient was resting in bed w/o acute distress. He reports feeling better with abd pain improving. States abdominal pain first began last Wednesday then resolved, until yesterday when pain reoccurred after eating lunch. No recent travel, antibiotic use, or ill contacts. Admits to eating fish ~1-2 week prior to onset of pain. Denies fever, CP, SOB, N/V, signs of bleeding, diarrhea, or constipation. No hx of IBD or PUD. Was taking Ibuprofen BID until pain developed last week and then transitioned to Tylenol for back pain. According to chart review, patient is previously known to our service from a prior hospitalization in June of last year (2018) at [facility] for GI bleeding. He underwent an extensive workup at that time with EGD/colonoscopy and pill camera that revealed diverticulosis which was thought to likely be etiology of bleeding (EGD normal; small bowel normal on pill camera). Past History Past Medical History: GERD, hypertension, hyperlipidemia Past Surgical History: Other (bilateral knee arthroscopies, right ankle ORIF, EGD/colonoscopy/pill camera 06/2019) Social history: denies: smoking, alcohol abuse (occasional alcohol use), prescription drug abuse, IV drug use Family history: no significant family history Medications and Allergies Allergies Allergy/AdvReac Type Severity Reaction Status Date / Time No Known Allergies Allergy Unverified 09/05/17 01:41 Home Medications Medication Instructions Recorded Confirmed Last Taken Type AtorvaSTATin [Lipitor] 40 mg PO QHS 12/28/19 12/28/19 Unknown History Ciprofloxacin HCl [Ciprofloxacin 500 mg PO Q12HR #10 tab 12/28/19 Unknown Rx TAB] Pantoprazole [Protonix] 40 mg PO BID #60 tablet 12/28/19 Unknown Rx metroNIDAZOLE [Flagyl] 500 mg PO Q8HR #14 tablet 12/28/19 Unknown Rx Active Meds: Active Medications Acetaminophen (Tylenol) 650 mg PO Q4H PRN PRN Reason: Pain MILD(1-3)/Fever >100.5/CHOWDHURY Enoxaparin Sodium (Enoxaparin) 40 mg SUB-Q QDAY [facility] Sodium Chloride (Nacl 0.9% 1000 Ml) 1,000 mls @ 125 mls/hr IV DIRECT SHILOH Last Admin: 12/28/19 05:30 Dose: 125 mls/hr Documented by: Piperacillin Sod/Tazobactam Sod (Zosyn/Ns 4.5gm/100ml) 4.5 gm in 100 mls @ 200 mls/hr IV Q8HR SHILOH; Protocol Morphine Sulfate (Morphine) 2 mg IV Q4H PRN PRN Reason: Pain, Moderate (4-6) Ondansetron HCl (Zofran) 4 mg IV Q8H PRN PRN Reason: Nausea And Vomiting Sodium Chloride (Sodium Chloride Flush Syringe 10 Ml) 10 ml IV BID SHILOH Sodium Chloride (Sodium Chloride Flush Syringe 10 Ml) 10 ml IV PRN PRN PRN Reason: LINE FLUSH medications reviewed/updated as required Review of Systems - Review of Systems All systems: negative Gastrointestinal: abdominal pain Exam - Constitutional Vital Signs: Temp Pulse Resp BP Pulse Ox 98.6 F 86 18 119/60 96 12/28/19 05:08 12/28/19 05:08 12/28/19 05:08 12/28/19 05:08 12/28/19 05:08 General appearance: no acute distress - EENT Eyes: PERRL, EOM intact ENT: hearing intact - Respiratory Respiratory effort: normal - Cardiovascular Rhythm: regular - Gastrointestinal General gastrointestinal: Present: soft, tender (slight), non-distended, normal bowel sounds - Integumentary Integumentary: Present: warm, dry - Neurologic Neurological: alert and oriented x3 - Labs CBC & Chem 7: 12/28/19 05:05 12/28/19 05:05 Lab Results: Laboratory Results - last 24 hr 12/27/19 12/27/19 12/27/19 21:06 21:06 21:06 WBC 9.1 RBC 4.41 Hgb 13.2 Hct 39.5 MCV 90 MCH 30 MCHC 33 RDW 14.3 Plt Count 270 Lymph % (Auto) 11.8 L Glascock % (Auto) 8.0 H Eos % (Auto) 0.6 Baso % (Auto) 0.4 Lymph # 1.1 L Glascock # 0.7 Eos # 0.1 Baso # 0.0 Seg Neutrophils % 79.2 H Seg Neutrophils # 7.2 Sodium 142 Potassium 3.4 L Chloride 101.0 Carbon Dioxide 24 Anion Gap 20 BUN 11 Creatinine 1.0 Estimated GFR > 60 BUN/Creatinine Ratio 11 Glucose 116 H Calcium 9.1 Magnesium 2.00 Total Bilirubin 0.50 AST 30 ALT 31 Alkaline Phosphatase 84 Total Creatine Kinase 152 Troponin T < 0.010 Total Protein 7.0 Albumin 4.0 Albumin/Globulin Ratio 1.3 Lipase 76 H Urine Color Urine Turbidity Urine pH Ur Specific Gustine Urine Protein Urine Glucose (UA) Urine Ketones Urine Blood Urine Nitrite Urine Bilirubin Urine Urobilinogen Ur Leukocyte Esterase Urine WBC (Auto) Urine RBC (Auto) 12/27/19 12/28/19 12/28/19 21:45 05:05 05:05 WBC 8.5 RBC 4.23 Hgb 12.3 Hct 37.2 MCV 88 MCH 29 MCHC 33 RDW 14.0 Plt Count 241 Lymph % (Auto) 11.2 L Glascock % (Auto) 8.8 H Eos % (Auto) 0.1 Baso % (Auto) 0.3 Lymph # 1.0 L Glascock # 0.7 Eos # 0.0 Baso # 0.0 Seg Neutrophils % 79.6 H Seg Neutrophils # 6.8 Sodium 144 Potassium 3.1 L Chloride 105.3 Carbon Dioxide 23 Anion Gap 19 BUN 9 Creatinine 1.0 Estimated GFR > 60 BUN/Creatinine Ratio 9 Glucose 138 H Calcium 8.5 Magnesium Total Bilirubin AST ALT Alkaline Phosphatase Total Creatine Kinase Troponin T Total Protein Albumin Albumin/Globulin Ratio Lipase Urine Color Yellow Urine Turbidity Clear Urine pH 5.0 Ur Specific Gustine 1.013 Urine Protein <15 mg/dl Urine Glucose (UA) Neg Urine Ketones Neg Urine Blood Neg Urine Nitrite Neg Urine Bilirubin Neg Urine Urobilinogen < 2.0 Ur Leukocyte Esterase Neg Urine WBC (Auto) 1.0 Urine RBC (Auto) 1.0 Assessment and Plan 1.upper abdominal pain 2.abnormal CT -afebrile -WBC, H/H, and LFTs WNL -abd CT showed proximal jejunitis with evidence of contained perforation and suspected interloop abscess; repeat abd CT with oral contrast w/o extravasation of contrast -surgery following with no recommendations for surgical intervention at this time -patient with hx of GI bleed thought to be divertcular in nature June 2019 at [facility] with undergoing EGD/colonoscopy and pill camera at that time with EGD normal and small bowel normal -etiology-possibly 2/2 fish bone vs other (doubt IBD or ulcer) -no plan for repeat scope at this time, recommend outpatient EGD in a few weeks for further evaluation once acute process has resolved -okay for soft diet -start on PPI -continue antibiotics and supportive care -if tolerates PO intake, okay to be d/c on antibiotics/PPI with f/u in clinic in ~2-3 weeks to schedule EGD as above <DANN BANERJEE - Last Filed: 12/28/19 16:07> Medications and Allergies Active Meds: Active Medications Acetaminophen (Tylenol) 650 mg PO Q4H PRN PRN Reason: Pain MILD(1-3)/Fever >100.5/CHOWDHURY Enoxaparin Sodium (Enoxaparin) 40 mg SUB-Q QDAY [facility] Last Admin: 12/28/19 10:27 Dose: 40 mg Documented by: Sodium Chloride (Nacl 0.9% 1000 Ml) 1,000 mls @ 125 mls/hr IV DIRECT [facility] Last Admin: 12/28/19 05:30 Dose: 125 mls/hr Documented by: Piperacillin Sod/Tazobactam Sod (Zosyn/Ns 4.5gm/100ml) 4.5 gm in 100 mls @ 200 mls/hr IV Q8HR [facility]; Protocol Last Admin: 12/28/19 15:54 Dose: 200 mls/hr Documented by: Morphine Sulfate (Morphine) 2 mg IV Q4H PRN PRN Reason: Pain, Moderate (4-6) Ondansetron HCl (Zofran) 4 mg IV Q8H PRN PRN Reason: Nausea And Vomiting Sodium Chloride (Sodium Chloride Flush Syringe 10 Ml) 10 ml IV BID [facility] Last Admin: 12/28/19 10:28 Dose: 10 ml Documented by: Sodium Chloride (Sodium Chloride Flush Syringe 10 Ml) 10 ml IV PRN PRN PRN Reason: LINE FLUSH Exam - Constitutional Vital Signs: Temp Pulse Resp BP Pulse Ox 98.6 F 69 20 115/63 97 12/28/19 15:36 12/28/19 15:36 12/28/19 15:36 12/28/19 15:36 12/28/19 15:36 - Labs CBC & Chem 7: 12/28/19 05:05 12/28/19 05:05 Lab Results: Laboratory Results - last 24 hr 12/27/19 12/27/19 12/27/19 21:06 21:06 21:06 WBC 9.1 RBC 4.41 Hgb 13.2 Hct 39.5 MCV 90 MCH 30 MCHC 33 RDW 14.3 Plt Count 270 Lymph % (Auto) 11.8 L Glascock % (Auto) 8.0 H Eos % (Auto) 0.6 Baso % (Auto) 0.4 Lymph # 1.1 L Glascock # 0.7 Eos # 0.1 Baso # 0.0 Seg Neutrophils % 79.2 H Seg Neutrophils # 7.2 Sodium 142 Potassium 3.4 L Chloride 101.0 Carbon Dioxide 24 Anion Gap 20 BUN 11 Creatinine 1.0 Estimated GFR > 60 BUN/Creatinine Ratio 11 Glucose 116 H Calcium 9.1 Magnesium 2.00 Total Bilirubin 0.50 AST 30 ALT 31 Alkaline Phosphatase 84 Total Creatine Kinase 152 Troponin T < 0.010 Total Protein 7.0 Albumin 4.0 Albumin/Globulin Ratio 1.3 Lipase 76 H Urine Color Urine Turbidity Urine pH Ur Specific Gustine Urine Protein Urine Glucose (UA) Urine Ketones Urine Blood Urine Nitrite Urine Bilirubin Urine Urobilinogen Ur Leukocyte Esterase Urine WBC (Auto) Urine RBC (Auto) 12/27/19 12/28/19 12/28/19 21:45 05:05 05:05 WBC 8.5 RBC 4.23 Hgb 12.3 Hct 37.2 MCV 88 MCH 29 MCHC 33 RDW 14.0 Plt Count 241 Lymph % (Auto) 11.2 L Glascock % (Auto) 8.8 H Eos % (Auto) 0.1 Baso % (Auto) 0.3 Lymph # 1.0 L Glascock # 0.7 Eos # 0.0 Baso # 0.0 Seg Neutrophils % 79.6 H Seg Neutrophils # 6.8 Sodium 144 Potassium 3.1 L Chloride 105.3 Carbon Dioxide 23 Anion Gap 19 BUN 9 Creatinine 1.0 Estimated GFR > 60 BUN/Creatinine Ratio 9 Glucose 138 H Calcium 8.5 Magnesium Total Bilirubin AST ALT Alkaline Phosphatase Total Creatine Kinase Troponin T Total Protein Albumin Albumin/Globulin Ratio Lipase Urine Color Yellow Urine Turbidity Clear Urine pH 5.0 Ur Specific Gustine 1.013 Urine Protein <15 mg/dl Urine Glucose (UA) Neg Urine Ketones Neg Urine Blood Neg Urine Nitrite Neg Urine Bilirubin Neg Urine Urobilinogen < 2.0 Ur Leukocyte Esterase Neg Urine WBC (Auto) 1.0 Urine RBC (Auto) 1.0 Assessment and Plan Patient seen and examined; agree with note above. tolerating po with improved abd pain. diet as tolerated if okay with surgery. f/u in GI clinic as above for outpatient endoscopy once contained perforation/abscess resolves.
[2019-12-28] MEDS: PIPERACIL/TAZOBACTA 4.5/NS 100 4.5 GM/100 ML VIAL IV SCH ×2 (10:27→15:54)
[2019-12-28] MEDS ORDERED: POTASSIUM CHLORIDE ER 20 MEQ TAB PO ONE (14:46)
--- NOTE | 2019-12-28 14:54 | Discharge Summary ---
Providers - Providers Date of Admission: 12/28/19 02:46 Date of discharge: 12/28/19 Attending physician: CAMILA EASTMAN 12/28/19 01:33 Consult to Physician [CONS] Urgent Comment: Dr. Garcia spoke with Dr. Fernandes @ 0141 Consulting Provider: DARYN FERNANDES Physician Instructions: Reason For Exam: abd abscess 12/28/19 01:45 Consult to Physician [CONS] Urgent Comment: Dr. Garcia spoke with Dr. Shafer @ [phone] Consulting Provider: CAROLYN SWENSON Physician Instructions: Reason For Exam: perf viscus Primary care physician: JAMIE HOOPER Hospitalization Condition: Serious Pertinent studies: Abdomen/pelvis CT Hospital course: Discharge diagnosis: /Acute jejunitis with contained perforation and suspected abscess formation Surgery and GI was consulted to see the patient - recommended no surgical procedure Patient tolerated diet, had BM, plan to d/c with abx, PPI and outpt f/u Start IV morphine /Hypertension, stable /Hyperlipidemia/GERD, stable, cont home meds /DVT prophylaxis Time spent for discharge: 34 minutes Core Measure Documentation - Palliative Care Palliative Care/ Comfort Measures: Not Applicable - Core Measures Any of the following diagnoses?: none Exam - Constitutional Vitals: Temp Pulse Resp BP Pulse Ox 98.9 F 76 20 126/76 97 12/28/19 11:00 12/28/19 11:00 12/28/19 11:00 12/28/19 11:00 12/28/19 11:00 General appearance: Present: no acute distress, well-nourished - EENT Eyes: Present: PERRL ENT: hearing intact, clear oral mucosa - Neck Neck: Present: supple, normal ROM - Respiratory Respiratory effort: normal Respiratory: bilateral: CTA - Cardiovascular Heart Sounds: Present: S1 & S2. Absent: rub, click - Extremities Extremities: pulses symmetrical, No edema Peripheral Pulses: within normal limits - Abdominal General gastrointestinal: Present: soft, non-tender, non-distended, normal bowel sounds - Integumentary Integumentary: Present: clear, warm, dry - Musculoskeletal Musculoskeletal: gait normal, strength equal bilaterally - Psychiatric Psychiatric: appropriate mood/affect, intact judgment & insight - Neurologic Neurologic: CNII-XII intact, moves all extremities Plan Activity: advance as tolerated Weight Bearing Status: Weight Bear as Tolerated Diet: advance as tolerated Follow up with: PRIMARY CARE, [Referring] - 3-5 Days DANN SHAFER MD [Staff Physician] - 7 Days Prescriptions: Pantoprazole [Protonix] 40 mg PO BID #60 tablet
[2019-12-28 15:37] VITALS: BP 115/63
== END 2019-12-28 17:55 | disposition home or self-care (01) | DRG 371 ==
LOC: ED 19:58 → IMCU 12-28 02:46 → 3B-SURG 12-28 03:24
PROVIDERS: ADMIT Internal Medicine; ATTEND Internal Medicine
DX: K63.0 Abscess of intestine (principal); K63.1 Perforation of intestine (nontraumatic); K52.9 Noninfective gastroenteritis and colitis, unspecified; I10 Essential (primary) hypertension; M79.10 Myalgia, unspecified site; E78.00 Pure hypercholesterolemia, unspecified; K21.9 Gastro-esophageal reflux disease without esophagitis; E78.5 Hyperlipidemia, unspecified; R05 Cough; F10.10 Alcohol abuse, uncomplicated; Z82.49 Family history of ischemic heart disease and other diseases of the circulatory system
CPT/HCPCS: 36415; 74176; 74177; 80048; 80053; 81001; 82550; 83690; 83735; 84484; 85025; 93005; 93010; G0378; C9113; J1650; J2543; J7030; Q9963; Q9967